=== PATIENT | female | born 1965 | race Caucasian/White ===

== ENCOUNTER 2023-04-20 12:55 | Emergency (ER) | payer OTHER, BC ==
[2023-04-20 13:09] VITALS: RESP 18; BMI 34.7
[2023-04-20 15:15] LABS: HEMATOCRIT 34.8 % (32.4-45.2); HEMOGLOBIN 11.8 GM/dL (10.7-15.3); MCH 38.6 pg (25.7-33.7); MCHC 33.8 g/dl (32.0-36.0); MEAN CELL VOLUME 114.2 fl (80-96); MEAN PLT VOLUME 9.1 fl (7.5-11.1); PLATELET COUNT 78 10^3/uL (134-434); RBC 3.05 M/mm3 (3.60-5.2); RDW 16.3 % (11.6-15.6); WHITE BLOOD COUNT 5.5 K/mm3 (4.0-10.0)
[2023-04-20 15:25] LABS: ACTIVATED PTT 38.6 SECONDS (25.2-36.5)
[2023-04-20 15:26] LABS: INR 2.74 (0.83-1.09); PROTHROMBIN TIME (PATIENT) 31.5 SEC (9.7-13.0)
[2023-04-20 15:26] LABS: EPI CELLS 6 /uL (0-25.1); HYALINE CASTS 6 /uL (0-3.1); PH,URINE 5.5 (5.0-8.0); URINE APPEARANCE TURBID; URINE BILIRUBIN 3+ (NEGATIVE); URINE COLOR ORANGE; URINE GLUCOSE (UA) NEGATIVE (NEGATIVE); URINE KETONE NEGATIVE (NEGATIVE); URINE LEUK ESTERASE 1+ (NEGATIVE); URINE NITRITE POSITIVE (NEGATIVE); URINE PROTEIN 1+ (NEGATIVE); URINE RBC 18 /uL (0-23.9); URINE WBC 12 /uL (0-25.8)
[2023-04-20 15:34] LABS: CHLORIDE 94 mmol/L (98-107); SODIUM 131 mmol/L (136-145)
[2023-04-20 15:36] LABS: ALBUMIN 2.2 g/dl (3.4-5.0)
[2023-04-20 15:37] LABS: BLOOD UREA NITROGEN 11.4 mg/dL (7-18); CO2 25 mmol/L (21-32); GLUCOSE,RANDOM 162 mg/dL (74-106)
[2023-04-20 15:39] LABS: BILIRUBIN,DIRECT 15.6 mg/dL (0.0-0.2); SGPT/ALT 62 U/L (13-61)
[2023-04-20 15:40] LABS: CREATININE 0.9 mg/dL (0.55-1.3); SGOT/AST 161 U/L (15-37)
[2023-04-20 15:42] LABS: ALK PHOS 86 U/L (45-117)
[2023-04-20 15:43] LABS: URINE BACTERIA 23.9 /uL (0-1359); URINE CRYSTALS NEGATIVE /hpf
[2023-04-20 15:46] LABS: ANISOCYTOSIS 2+; MACROCYTOSIS 2+; PLATELET ESTIMATE DECREASED
[2023-04-20] MEDS ORDERED: CEFTRIAXONE 1 GM in DEXTROSE 5%-WATER - 100 ML IVPB ONE (15:49)
[2023-04-20 15:52] LABS: ANION GAP 11 MMOL/L (8-16); BILIRUBIN,TOTAL 23.2 mg/dL (0.2-1); POTASSIUM 2.9 mmol/L (3.5-5.1)
[2023-04-20] MEDS ORDERED: POTASSIUM CHLORIDE TABS 20 MEQ TABLET.ER (FP) PO ONE ×2 (15:55→16:01)
[2023-04-20] MEDS ORDERED: CEFTRIAXONE 1 GM/50 ML BAG ONE (16:01)
[2023-04-20] MEDS ORDERED: KCL 10 MEQ IVPB 10 MEQ/100 ML INFUS.BAG IVPB ONE (16:01)
[2023-04-20] MEDS: KCL 10 MEQ IVPB 10 MEQ/100 ML INFUS.BAG IVPB SCH ×3 (17:30→20:38)
[2023-04-20] MEDS ORDERED: KCL 10 MEQ IVPB 20 MEQ/200 ML INFUS.BAG IVPB ONE (19:29)
[2023-04-20 19:44] VITALS: TEMP 99.8
[2023-04-20 22:26] VITALS: BP 110/60; PULSE 80
== END 2023-04-20 22:20 | disposition short-term general hospital (02) ==
LOC: JER 12:55
PROC: 3E03329 Introduction of Other Anti-infective into Peripheral Vein, Percutaneous Approach (ICD-10-PCS; principal; 2023-04-20)
PROC: 3E033GC Introduction of Other Therapeutic Substance into Peripheral Vein, Percutaneous Approach (ICD-10-PCS; 2023-04-20)
DX: R31.9 Hematuria, unspecified (principal); K62.5 Hemorrhage of anus and rectum; R42 Dizziness and giddiness; R53.1 Weakness; R19.00 Intra-abdominal and pelvic swelling, mass and lump, unspecified site; R22.41 Localized swelling, mass and lump, right lower limb; R06.02 Shortness of breath; R17 Unspecified jaundice; N39.0 Urinary tract infection, site not specified; Z20.822 Contact with and (suspected) exposure to COVID-19
CPT/HCPCS: 0241U-QW; 36415; 71250-TC; 74176-TC; 76705-TC; 80053; 81003; 82248; 82272; 83880; 85025; 85610; 85730; 86850; 86900; 86901; 87086; 93005; 93010; 93971-TC; 99285-25